=== PATIENT | female | born 1975 | race Caucasian/White ===

== ENCOUNTER 2017-01-15 05:20 | Inpatient (IN) | payer OTHER ==
[~2017-01-15] VITALS: Ht 160 cm; Wt 129.0 kg
[2017-01-15] VITALS (8 sets, daily range): BP systolic 124–153; BP diastolic 73–96
--- NOTE | ~2017-01-15 | O ---
[facility] [place] [address] OPERATIVE REPORT Name: REBECA PACHECO Room #: 412-P [facility] IN M.R.#: [id number] Admission: 01/15/17 Attend Phys: Wade Ernandez MD, F Discharge: Date of : 73 Report #: [id number] THIS REPORT FOR: //name// CC: ENA RAULITO Ernandez DATE OF SERVICE: 01/15/2017 SURGEON: Wade Ernandez MD. COMMISSION SPECIALIST: Olimpia Lazar MD. SECOND INFORMATION TECHNOLOGY SECURITY ANALYST: DANYELL Rincon. POSTOPERATIVE DIAGNOSES: 1. Morbid obesity (body mass index of 52). 2. Obstructive sleep apnea. 3. Arthritis. POSTOPERATIVE DIAGNOSES: 1. Morbid obesity (body mass index of 52). 2. Obstructive sleep apnea. 3. Arthritis. PROCEDURE: Laparoscopic sleeve gastrectomy with EGD. ANESTHESIA: General endotracheal anesthesia and local anesthetic. ESTIMATED BLOOD LOSS: 5 mL. SPECIMEN: Lateral stomach. COMPLICATIONS: None appreciated. INDICATIONS FOR PROCEDURE: This is a 41-year-old female patient, who stands 5 feet 3 inches, weighing 292 pounds with a BMI of 52. She has had difficulty with her weight for most of her life. She has tried numerous weight loss programs and plans including specialized diets like Slim 4 Life, Herbalife, and a 1200 calorie diet, as well as exercises and medications, such as phentermine. Any amount of weight the patient has lost, she has quickly regained, plus additional weight, after stopping the modality. She has associated complaints of bilateral hip pain and snoring at night, with excessive daytime somnolence. She has been cleared from a multidisciplinary standpoint and presents now for laparoscopic sleeve gastrectomy with EGD. OPERATIVE FINDINGS: On EGD, the patient's esophagus was normal down to the GE [facility] [address] [place] [address] OPERATIVE REPORT Name: REBECA PACHECO Room #: 412-P [facility] IN M.R.#: [id number] Admission: 01/15/17 Attend Phys: Wade Ernandez MD, F Discharge: Date of : 73 Report #: [id number] junction and Z-line, measured at 38 cm from the teeth. There was no appreciable hiatal hernia. The stomach and duodenum down to the third portion were normal without polyps, diverticula, masses, or ulcers. On retroflexion of the scope within the antrum, there was no evidence for hiatal hernia. Laparoscopically, the patient's liver, small bowel, and colon appeared normal. The stomach was enlarged as expected. The sleeve staple line was 1 cm lateral to the GE junction, 3 cm lateral to the incisura of the stomach and 4 cm from the pylorus. After creation of the sleeve, a leak test was performed, whereby air was insufflated into the gastric sleeve, immediately after applying Tisseel to the staple line. No air bubbles were seen within the staple line indicative of no leak. Endoluminally, there was no bleeding. The excised stomach held 1 liter of fluid on the back table. No other significant intra-abdominal pathology was identified. At the conclusion of the operation, the sponge, needle, and instrument counts were correct. There was no evidence for iatrogenic injury. DESCRIPTION OF PROCEDURE IN DETAIL: After the benefits and risks of the procedure were explained to the patient which include but are not limited to risks of bleeding, infection, postoperative pain, postoperative expectations and risks of DVT and pulmonary embolus, informed consent was obtained. The patient was identified in the preoperative holding area. The patient was given IV antibiotics as documented in the chart in line with SCIP protocol. The patient was then taken to the operating room and was placed in the supine position. The patient was given IV sedation and was intubated without incident. SCDs were placed on the patient's bilateral lower extremities prior to induction of anesthesia. The patient had been placed in the modified low lying dorsal lithotomy position in stirrups on the beanbag. The beanbag and the patient were secured to the bed. A time-out was then performed to correctly identify the patient and procedure. An orogastric tube was placed by anesthesia. A bite block was placed and the fiberoptic EGD scope was passed into the patient's oropharynx, down the esophagus, into the stomach, and into the third portion of the duodenum. Findings are as noted above. The scope was slowly withdrawn into the antrum and the scope was retroflexed. The hiatus was visualized. The scope was then straightened and the end of the gastroscope was placed at the pylorus. The stomach was decompressed with the scope. The patient's abdomen was then prepped and draped in the standard sterile fashion with surgical prep. Local anesthetic was infiltrated into the skin and subcutaneous tissue in the left supraumbilical area where a sharp #15-blade scalpel was used to make a 5-mm incision. The 5-mm Visiport was placed intraperitoneally with the 5-mm 0-degree angled laparoscope. Pneumoperitoneum was then achieved with insufflation of carbon dioxide to 15 mmHg. A 5-mm 30-degree angled laparoscope was then inserted. The 15-mm port was placed in [address] [address] OPERATIVE REPORT Name: REBECA PACHECO Room #: 412-P [facility] IN M.R.#: [id number] Admission: 01/15/17 Attend Phys: Wade Ernandez MD, F Discharge: Date of : 73 Report #: [id number] the right supraumbilical area after local anesthetic was infiltrated into the skin and subcutaneous tissue and an appropriately sized incision was made. Two additional 5 mm ports were placed in the left abdomen after local anesthetic was infiltrated and incisions were made. All ports were placed under direct visualization. The patient was then placed in reverse Trendelenburg position. Local anesthetic was infiltrated into the skin and subcutaneous tissue in the subxiphoid area and a 5-mm incision was made through which a 5-mm obturator was passed into the abdominal cavity through the fascia to create a passageway for the Chapito liver retractor. The retractor was placed to retract the liver anteriorly. The retractor was held in place with the Iron Boiler Assistant Operator apparatus. All abdominal adhesions were then taken down with blunt dissection, sharp dissection and judicious use of the ultrasonic dissector. The gastrosplenic ligament and short gastric vessels were then divided using the ultrasonic dissector with appropriate traction. Bleeding points were made hemostatic with the ultrasonic dissector. Dissection was carried proximally up to the left maryjo of the diaphragm. The distal end point of dissection was then measured at 4 cm proximal to the pylorus. The short gastric vessels and gastrocolic ligaments were dissected to that level. The stomach was then rotated medially to visualize any posterior attachments/adhesions to the stomach. The adhesions were dissected with a combination of sharp dissection and use of the ultrasonic dissector. The endoscope was then slightly withdrawn to place it along the lesser curvature of the stomach. Suction was applied to the orogastric tube which was then removed, leaving the endoscope in place as a 34-Yoruba bougie. The gastric sleeve was then created. Two black loads of the powered endoscopic EDWINA stapler buttressed with Gricelda-Strips were used to staple and divide the stomach 4 cm proximal to the pylorus. Additional green loads buttressed with Gricelda-strips were used to staple off the remainder of the stomach using the endoscope as the bougie. Care was taken to ensure that greater than 3 cm of space was present between the incisura and the staple line. The stomach was fully transected and placed in the right upper quadrant of the abdomen for later removal. The staple line of the sleeve was then clipped with Hemoclips times 3 distally to provide hemostasis. Tisseel was applied to the entire length of the staple line with the BRAINDIGITspraETHERA aerosolizer to fully ensure hemostasis. A leak test was performed next. The sleeve was insufflated with the endoscope which was slowly withdrawn. No air bubbles were seen in the Tisseel laparoscopically. Endoluminally, no bleeding was seen. The stomach was fully decompressed and the scope was slowly withdrawn. The Chapito liver retractor was then loosened from the Iron Boiler Assistant Operator apparatus and it was removed without difficulty. The stomach was then removed from the patient's body through the 15-mm port [address] [address] OPERATIVE REPORT Name: REBECA PACHECO Room #: 412-P [facility] IN M.R.#: [id number] Admission: 01/15/17 Attend Phys: Wade Ernandez MD, F Discharge: Date of : 73 Report #: [id number] under direct visualization. A small amount stretching of the fascia was required to create an opening large enough for removal of the stomach. After its removal, the 15-mm port site fascial opening was closed with an 0-PDS suture using the Baljeet-Little laparoscopic fascial closure device. All ports were removed after the abdominal cavity was desufflated. The fascial suture was tied. Interrupted subcuticular 4-0 Monocryl sutures and Dermabond were used to close all skin incisions. The patient tolerated the procedure well. The patient was awakened, extubated and taken to the recovery room in stable condition with no apparent intraoperative complications. <ELECTRONICALLY SIGNED> By: Wade Ernandez MD, FACS 01/16/17 0924 1521 1640 Wade Ernandez MD, FACS /nt
--- NOTE | ~2017-01-15 | H ---
[facility] [address] [place] [address] HISTORY AND PHYSICAL Name: REBECA PACHECO Room #: 412-P [facility] IN M.R.#: [id number] Admission: 01/15/17 Attend Phys: Wade Ernandez MD, F Discharge: 01/16/17 Date of : 73 Report #: [id number] THIS REPORT FOR: //name// For History and Physical, please see office documentation/handwritten note in the patient's medical record. <ELECTRONICALLY SIGNED> By: Wade Ernandez MD, FACS 01/20/17 1714 1525 Wade Ernandez MD, FACS /jr
--- NOTE | ~2017-01-15 | S ---
[facility] [place] [address] SURGICAL PATH RPT PROCEDURE Name: ISABEL PACHECO Room #: 412-P [facility] IN M.R.#: [id number] Admission: 01/15/17 Date of : 73 Discharge: 01/16/17 Report #: [id number] Path Case #: [id number] PATHOLOGY REPORT COLLECTION DATE: 01/15/2017 RECEIVED DATE: 01/15/2017 SUBMITTING PHYS: Dr. Wade Ernandez OTHER PHYS: Dr. Olimpia Haq SPECIMEN(S) RECEIVED: A.Gastric sleeve * * * * * * * * * * * * FINAL DIAGNOSIS: A. "Gastric sleeve", partial gastrectomy: - Gastric mucosa, submucosa and muscular wall with minimal histologic alterations. (CLW; 01/16/17) PATHOLOGIST: Tracey Elizabeth M.D. REPORT ELECTRONICALLY SIGNED BY: Tracey Elizabeth M.D. DATE/TIME: 01/16/2017 22:01 * * * * * * * * * * * * GROSS PATHOLOGY: The specimen is received in formalin, labeled "Isabel Pacheco, gastric sleeve". Received is a partial gastrectomy specimen with a stapled margin of resection measuring 20.5 x 5.9 x 3.7 cm in greatest dimensions. The serosal surface is pink-freire, smooth and glistening in appearance. Opening the specimen reveals a light freire, granular-appearing mucosa with normal architectural folds. No distinct nodules or lesions are noted grossly. The specimen is submitted representatively in cassette A1. (CAA; 01/15/2017) CLINICAL HISTORY: Morbid obesity INITIAL CPT CODE(S): A; 60962 [facility] by [facility] [address], [place] [address] [facility] [address] [place] [address] SURGICAL PATH RPT PROCEDURE Name: ISABEL PACHECO Room #: 412-P [facility] IN M.R.#: [id number] Admission: 01/15/17 Date of : 73 Discharge: 01/16/17 Report #: [id number] Path Case #: [id number] Technical services performed by [facility] at [address] [place] [address], [address] [address]. [facility] [address] [place] [address] PHONE: [phone] DIRECTOR: Abhi Watson M.D. * * * END OF REPORT * * *
[~2017-01-15 05:20] MED LIST: METFORMIN HCL500 MG PO
[2017-01-16] VITALS: BP 116/75
[2017-01-16 05:32] VITALS: BP 117/80
[2017-01-16 06:06] LABS: ABSOLUTE NEUTROPHILS 8.9 thou/uL (1.4-8.2); BASOPHILS 0.2 % (0.0-2.0); HEMATOCRIT 39.5 % (37.0-47.0); HEMOGLOBIN 13.2 gm/dL (12.0-15.0); LYMPHOCYTES 16.8 % (24.0-44.0); MCH 28.3 pg (26.0-34.0); MCHC 33.5 g/dL (28.0-37.0); MCV 84.4 fL (80.0-100.0); MONOCYTES 8.8 % (1.0-8.0); PLATELET COUNT 229 thou/uL (150-400); POLYS 74.2 % (36.0-66.0); RBC 4.67 mil/uL (4.20-5.00); RDW 13.8 % (10.5-14.5)
[2017-01-16 06:15] LABS: MANUAL DIFF NO
[2017-01-16 06:19] LABS: CALCIUM 8.5 mg/dL (8.5-10.1); CREATININE 0.8 mg/dL (0.6-1.0); POTASSIUM 3.8 mmol/L (3.5-5.1)
[2017-01-16 07:52] VITALS: BP 121/79
[2017-01-16] MEDS ORDERED: ZOFRAN ODT4 MG PO (08:17)
[2017-01-16 11:21] VITALS: BP 121/79
[2017-01-16 12:13] VITALS: BP 121/79
== END 2017-01-16 12:15 | disposition home or self-care (01) | DRG 621 ==
LOC: OR 05:20 → TBA 05:21 → OR 09:18 → 4N 11:25 → OR 12:45 → 4N 01-16 12:15
PROVIDERS: Surgery
PROC: 0DB64Z3 Excision of Stomach, Percutaneous Endoscopic Approach, Vertical (ICD-10-PCS; principal; 2017-01-15)
DX: E66.01 Morbid (severe) obesity due to excess calories (principal); Z68.43 Body mass index [BMI] 50.0-59.9, adult; G47.33 Obstructive sleep apnea (adult) (pediatric); M19.90 Unspecified osteoarthritis, unspecified site; Z88.0 Allergy status to penicillin; Z88.1 Allergy status to other antibiotic agents; Z88.2 Allergy status to sulfonamides
CPT/HCPCS: 10091; 50010; 50101; 50222; 50249; 50386; 50555; 50739; 50740; 50962; 51437; 52182; 52265; 53307; 53311; 54022; 55245; 56462; 56525; 56526; 56531; 57092; 62110; 62900; 70005